=== PATIENT | male | born 1950 | race Caucasian/White ===

== ENCOUNTER 2016-06-03 13:47 | Day surgery (SDCO) | payer OTHER, MEDICARE ==
[2016-06-03 14:16] LABS: INR 1.2 (0.9-1.2); PROTHROMBIN TIME 14.8 SECONDS (11.7-14.0); PTT 28.9 SECONDS (23.2-31.4)
[2016-06-03 14:18] LABS: BASOPHIL 0.4 % (0-2); EOSINOPHIL 2.3 % (0-7); HCT 43.2 % (42.0-52.0); HGB 14.9 g/dl (13.2-18.0); LYMPHOCYTE 23.7 % (15-48); MCH 31.2 pg (25.0-31.0); MCHC 34.5 g/dL (32.0-36.0); MCV 90.6 fL (78.0-100.0); MONOCYTE 14.7 % (0-12); MPV 11.5 fL (6.0-9.5); NEUTROPHIL 58.9 % (41-80); PLT 173 K/uL (150-400); RBC 4.77 M/uL (4.70-6.00); RDW 14.2 % (11.5-14.0); WBC 7.5 K/uL (4.0-10.5)
[2016-06-03 14:28] LABS: CKMB 4.12 ng/mL (0.97-4.94); TROPONIN T < 0.010 ng/mL
[2016-06-03 14:29] LABS: ALBUMIN 4.2 g/dL (3.4-4.8); CREATININE 0.9 mg/dL (0.7-1.2); GLOBULIN (CALCULATION) 2.2 g/dL (2.2-4.2); POTASSIUM 4.2 mmol/L (3.5-5.1); PRO-BNP 1379 pg/mL (0-125); TOTAL PROTEIN 6.4 g/dL (6.4-8.3)
[2016-06-03 14:32] LABS: BILIRUBIN NEGATIVE (NEGATIVE); BLOOD 2+ Ery/uL (NEGATIVE); CLARITY CLEAR (CLEAR); COLOR YELLOW (YELLOW); GLUCOSE (U) NORMAL (NORMAL); KETONE (U) NEGATIVE (NEGATIVE); LEUKOCYTES NEGATIVE Leu/uL (NEGATIVE); NITRITE NEGATIVE (NEGATIVE); PROTEIN NEGATIVE (NEGATIVE); SPECIFIC GRAVITY >=1.030 (1.001-1.030)
[2016-06-03 14:39] LABS: BACTERIA TRACE; URINARY WBC RARE
[2016-06-03 17:24] LABS: AMPHETAMINES NEGATIVE (NEGATIVE); BARBITURATES NEGATIVE (NEGATIVE); BENZODIAZEPINES NEGATIVE (NEGATIVE); COCAINE NEGATIVE (NEGATIVE); MARIJUANA (THC) NEGATIVE (NEGATIVE); METHADONE NEGATIVE (NEGATIVE); TRICYCLIC ANTIDEPRESSANT NEGATIVE (NEGATIVE)
[2016-06-03 18:10] LABS: ACETAMINOPHEN (TYLENOL) < 5.0 ug/mL (10.0-30.0); SALICYLATE < 6 ug/mL (0-300)
[2016-06-03 18:21] LABS: FT4 (FREE T4) 1.14 ng/dL (0.93-1.70); TSH (THYROID STIM HORMONE) 2.6 uIU/mL (0.270-4.200)
[2016-06-04 05:00] LABS: HCT 42.6 % (42.0-52.0); HGB 14.6 g/dl (13.2-18.0); MCH 30.9 pg (25.0-31.0); MCHC 34.3 g/dL (32.0-36.0); MCV 90.1 fL (78.0-100.0); MPV 11.2 fL (6.0-9.5); RBC 4.73 M/uL (4.70-6.00); RDW 14.1 % (11.5-14.0)
[2016-06-04 05:35] LABS: MAGNESIUM 2.07 mg/dL (1.40-2.10); PHOSPHORUS 3.1 mg/dL (2.7-4.5); POTASSIUM 3.9 mmol/L (3.5-5.1)
[2016-06-04] MEDS ORDERED: ASPIRIN EC81 MG PO (14:17)
== END 2016-06-04 14:25 | disposition home or self-care (01) ==
LOC: FER 13:47 → FTCU 15:15
PROVIDERS: Emergency Medicine; ADMIT Internal Medicine Adolescent Medicine
DX: I49.3 Ventricular premature depolarization (principal); I10 Essential (primary) hypertension; F17.210 Nicotine dependence, cigarettes, uncomplicated; Z80.0 Family history of malignant neoplasm of digestive organs; Z23 Encounter for immunization
CPT/HCPCS: 36415; 71020; 80048; 80053; 80305; 81001; 82550; 82553; 83735; 83880; 84100; 84439; 84443; 84484; 85025; 85610; 85730; 87804; 87899; 90732; 93005; G0009; G0378; G0480; J1940

== ENCOUNTER 2020-04-28 15:08 | Day surgery (SDC) | payer MEDICARE, OTHER ==
[~2020-04-28 15:08] MED LIST: ASPIRIN EC81 MG PO
[2020-04-28 16:08] LABS: HCT 41.4 % (42.0-52.0); MCHC 33.8 g/dL (32.0-36.0); MCV 91.6 fL (78.0-100.0); MPV 10.4 fL (6.0-9.5); RBC 4.52 M/uL (4.70-6.00); RDW 12.8 % (11.5-14.0); WBC 8.1 K/uL (4.0-10.5)
[2020-04-28] MEDS ORDERED: ALDACTONE25 MG PO (16:18)
[2020-04-28] MEDS ORDERED: ENTRESTO 24 MG1 EACH PO (16:19)
[2020-04-28] MEDS ORDERED: TOPROL XL 25MG25 MG PO (16:19)
[2020-04-28] MEDS ORDERED: VITAMIN D (16:20)
[2020-04-28] MEDS ORDERED: ONDANSETRON ODT8 MG PO (17:52)
[2020-04-28] MEDS ORDERED: NORCO 5-325 TA1 EACH PO (17:52)
--- NOTE | 2020-04-28 20:52 | NUR ---
PT STABLE AT THIS TIME. VITALS UPON GETTING TO THE FLOOR WERE BP 139/87, HR 71, R 21, TEMP 97.7,O2 92 WITH NO NAUSEA OR PAIN. PT HAS VOIDED AND TOLERATED CLEARS WITHOUT ANY ISSUES AND HAS PASSED GAS. AT 2044 IV WAS REMOVED WITH CATHATER TIP INTACT AND VITALS AT 2044 ARE BP 136/79, HR 72, R 18, TEMP 97.5, AND O2 90 ON ROOM AIR. NO DISTRESS NOTED AND DISCHARGE INSTRUCTIONS WERE PROVIDED TO PATIENT. PT TO BE DISCHARGED WITH VIA WHEELCHAIR.
== END 2020-04-28 21:07 | disposition home or self-care (01) ==
LOC: FAS 15:08
PROVIDERS: Surgery
DX: K35.80 Unspecified acute appendicitis (principal); F17.200 Nicotine dependence, unspecified, uncomplicated; I48.91 Unspecified atrial fibrillation; J01.00 Acute maxillary sinusitis, unspecified; I11.0 Hypertensive heart disease with heart failure; I50.9 Heart failure, unspecified; E29.1 Testicular hypofunction; I49.3 Ventricular premature depolarization; I42.0 Dilated cardiomyopathy; E55.9 Vitamin D deficiency, unspecified; Z79.82 Long term (current) use of aspirin; Z79.899 Other long term (current) drug therapy; Z95.810 Presence of automatic (implantable) cardiac defibrillator; Z20.822 Contact with and (suspected) exposure to COVID-19
CPT/HCPCS: 36415; 80053; J0694; J1100; J1170; J1885; J2250; J2405; J2704; J2710; J3010; J7120; Q9967; U0002